=== PATIENT | female | born 1975 | race Caucasian/White ===

== ENCOUNTER 2019-02-18 18:30 | Emergency (ER) | payer MEDICAID ==
[~2019-02-18] VITALS: Ht 165.1 cm; Wt 77.1 kg
[2019-02-18 18:42] VITALS: BP_SYST 148
--- NOTE | 2019-02-18 18:46 | NUR ---
Patient triaged and placed in waiting room. VSS and patient appears in no acute distress at this time. Accompanied by family, awaiting available bed, and MD notified of need for MSE.
--- NOTE | 2019-02-18 20:11 | NUR ---
Patient to ER bed h1 for evaluation. Side rails up.
--- NOTE | 2019-02-18 20:15 | NUR ---
Pt AAOx4 c/o 5/10 chest pain x 2 weeks with nausea. Pt also c/o numbness/tingling down L arm. Denies vomiting/diarrhea. Skin pink dry and warm, breathing even and unlabored. No other injuries/complaints per pt/noted. Will continue to monitor.
--- NOTE | 2019-02-18 20:18 | NUR ---
ER Dr. Xavier at bedside examining patient.
--- NOTE | 2019-02-18 20:49 | NUR ---
Pt ambulated to bathroom with steady gait to provide urine sample.
--- NOTE | 2019-02-18 21:00 | NUR ---
Pt taken to radiology in stable condition
[2019-02-18 21:07] LABS: BILIRUBIN,URINE NEGATIVE (NEGATIVE); BLOOD, URINE 3+ (NEGATIVE); COLOR,URINE YELLOW (YELLOW); GLUCOSE,URINE NEGATIVE (NEGATIVE); KETONES,URINE NEGATIVE (NEGATIVE); LEUKOCYTE ESTERASE ,URINE NEGATIVE (NEGATIVE); NITRITE, URINE NEGATIVE (NEGATIVE); PH,URINE 7.5 (5.0-8.0); PROTEIN URINE NEGATIVE (NEGATIVE); UROBILINOGEN,URINE 0.2 (0.2-1.0)
--- NOTE | 2019-02-18 21:13 | NUR ---
Zhao carmona in ED - 02/18/19 at 2114 by [email or web address] Pt returned from radiology in stable condition
[2019-02-18 21:15] LABS: CLARITY/URINE HAZY (CLEAR)
[2019-02-18 21:17] LABS: BACTERIA,URINE FEW /HPF (None Seen); MUCUS,URINE None Seen /LPF (None Seen); RBC,URINE 20-50 /HPF (0-3); WBC,URINE 0-3 /HPF (0-3)
--- NOTE | 2019-02-18 21:32 | NUR ---
Pt moved to bed 08
[2019-02-18 21:36] LABS: BASOPHILS % (AUTO) 0.5 % (0.0-2.0); EOSINOPHILS # (AUTO) 0.1 K/uL (0.0-0.4); EOSINOPHILS % (AUTO) 1.5 % (0.0-4.0); HEMATOCRIT 41.3 % (36-48); HEMOGLOBIN 13.9 g/dL (12.0-16.0); LYMPHOCYTES # (AUTO) 2.7 K/uL (1.0-5.5); LYMPHOCYTES % (AUTO) 33.1 % (20.5-51.5); MEAN CORPUSCULAR HEMOGLOBIN 31 pg (27-31); MEAN CORPUSCULAR HGB CONC 34 % (32-36); MEAN CORPUSCULAR VOLUME 92 fL (79.0-98.0); MONOCYTES # (AUTO) 0.4 K/uL (0.0-1.0); MONOCYTES % (AUTO) 5.4 % (1.7-9.3); NEUTROPHILS # (AUTO) 4.8 K/uL (1.8-7.7); NEUTROPHILS % (AUTO) 59.5 % (40.0-70.0); PLATELET COUNT (AUTO) 266 K/uL (130-430); RED CELL DISTRIBUTION WIDTH 13.3 % (9.0-15.0); WHITE BLOOD COUNT (AUTO) 8.1 K/uL (4.8-10.8)
[2019-02-18 21:42] LABS: ANION GAP 6 (5-15); CALCIUM 8.6 mg/dL (8.4-11.0); CHLORIDE 102 mmol/L (98-107); CREATININE 0.67 mg/dL (0.55-1.30); GLUCOSE 105 mg/dL (70-99); POTASSIUM 3.5 mmol/L (3.5-5.1); SODIUM SERUM 137 mmol/L (136-145); UREA NITROGEN, BLOOD 10 mg/dL (8-21)
[2019-02-18 21:46] LABS: GFR AFRICAN AMERICAN 125 mL/min (>90)
[2019-02-18 21:50] LABS: ALANINE AMINOTRANSFERASE 58 U/L (12-78); ALBUMIN 3.6 g/dL (3.4-4.8); ASPARTATE AMINOTRANSFERASE 35 U/L (10-37); TOTAL BILIRUBIN 0.2 mg/dL (0.0-1.0)
--- NOTE | 2019-02-18 22:20 | NUR ---
ER Dr. Xavier at bedside examining patient.
--- NOTE | 2019-02-18 22:52 | NUR ---
Patient given written and verbal discharge instructions and verbalizes understanding. ER MD Xavier discussed with patient the results and treatment provided. Patient in stable condition. ID arm band removed. Rx of Ibuprofen given. Patient educated on pain management and to follow up with PMD. Pain Scale 0. Opportunity for questions provided and answered. Medication side effect fact sheet provided.
[2019-02-18 22:53] VITALS: BP_SYST 150
[2019-02-18] MEDS ORDERED: IBUPROFEN 600 MG TABLET PO ONE (23:00)
== END 2019-02-18 22:53 | disposition home or self-care (01) ==
LOC: SED 18:30
DX: R07.89 Other chest pain (principal); I10 Essential (primary) hypertension; M79.605 Pain in left leg; J45.909 Unspecified asthma, uncomplicated; M79.602 Pain in left arm
CPT/HCPCS: 36415; 71045; 80053; 81000-TC; 81025; 82550-TC; 83880; 84484; 85025; 93005; 99284

== ENCOUNTER 2020-12-29 08:49 | Emergency (ER) | payer MEDICAID ==
[~2020-12-29] VITALS: Ht 165.1 cm; Wt 77.1 kg
[2020-12-29 09:09] VITALS: BP_SYST 129
--- NOTE | 2020-12-29 11:32 | NUR ---
Pt came into ER with C/O vaginal bleeding [id number] with lower back pain cramping intermittent 5/10. Pt reports going through approximatley 3-4 pads a day. Pt report nausea. Pt denies pain or buring with urination. Pt is nonfebrile 98.1. Pt reports fatigue. Pt is AAOX4 speaking full sentences vital signs holding with slight elevated BP 149/95 HR 79 RR 18 O2 saturation 98% RA. Pt resting in gurney attached to monitor. No distress noted at this time.
--- NOTE | 2020-12-29 11:32 | NUR ---
Placed in room 7 . Placed on safety and health consultant, blood pressure machine and pulse oximeter. To gown for exam. Side rails up.
--- NOTE | 2020-12-29 11:33 | NUR ---
Urine collected and sent to lab.
--- NOTE | 2020-12-29 11:35 | NUR ---
# 20 gauge angiocath placed to RAC. Use of asceptic technique. Opsite placed over site. Blood return noted. Blood for lab drawn from site. Flushed with 10 cc of normal saline. No evidence of infiltration noted. Patient tolerated well.
--- NOTE | 2020-12-29 11:40 | NUR ---
Blood collected and sent to lab.
--- NOTE | 2020-12-29 12:01 | NUR ---
ER at bedside examining patient.
--- NOTE | 2020-12-29 12:13 | NUR ---
Set up for pelvic exam. Pt verbal consent given.
[2020-12-29] MEDS ORDERED: NACL 0.9% 1,000 ML IV ONE (12:15)
--- NOTE | 2020-12-29 12:22 | NUR ---
Dr. Xavier at bedside performing pelvic exam. Accompanied by Alka PLASENCIA. Consent form signed.
[2020-12-29 12:26] LABS: CALCIUM 7.9 mg/dL (8.4-11.0); CREATININE 0.59 mg/dL (0.55-1.30); POTASSIUM 4.1 mmol/L (3.5-5.1)
[2020-12-29 12:39] LABS: BASOPHILS # (AUTO) 0.1 K/uL (0.0-0.2); BASOPHILS % (AUTO) 0.8 % (0.0-2.0); EOSINOPHILS # (AUTO) 0.2 K/uL (0.0-0.4); EOSINOPHILS % (AUTO) 2.5 % (0.0-4.0); HEMATOCRIT 40.7 % (36-48); HEMOGLOBIN 13.5 g/dL (12.0-16.0); LYMPHOCYTES # (AUTO) 2.7 K/uL (1.0-5.5); LYMPHOCYTES % (AUTO) 33.1 % (20.5-51.5); MEAN CORPUSCULAR HEMOGLOBIN 31 pg (27-31); MEAN CORPUSCULAR HGB CONC 33 % (32-36); MEAN CORPUSCULAR VOLUME 94 fL (79.0-98.0); MONOCYTES # (AUTO) 0.4 K/uL (0.0-1.0); MONOCYTES % (AUTO) 5.5 % (1.7-9.3); NEUTROPHILS # (AUTO) 4.7 K/uL (1.8-7.7); NEUTROPHILS % (AUTO) 58.1 % (40.0-70.0); PLATELET COUNT (AUTO) 227 K/uL (130-430); RED BLOOD CELL COUNT(AUTO) 4.32 MIL/uL (4.2-6.2); RED CELL DISTRIBUTION WIDTH 13.3 % (9.0-15.0); WHITE BLOOD COUNT (AUTO) 8.1 K/uL (4.8-10.8)
[2020-12-29 12:58] LABS: BILIRUBIN,URINE NEGATIVE (NEGATIVE); BLOOD, URINE 3+ (NEGATIVE); GLUCOSE,URINE NEGATIVE (NEGATIVE); KETONES,URINE NEGATIVE (NEGATIVE); LEUKOCYTE ESTERASE ,URINE NEGATIVE (NEGATIVE); NITRITE, URINE NEGATIVE (NEGATIVE); PROTEIN URINE TRACE (NEGATIVE); UROBILINOGEN,URINE 0.2 (0.2-1.0)
--- NOTE | 2020-12-29 12:58 | NUR ---
Patient transported to radiology via wheelchair, accompanied by tech.
[2020-12-29 12:59] LABS: CLARITY/URINE SLIGHTLY HAZY (CLEAR); COLOR,URINE YELLOW (YELLOW)
[2020-12-29 13:06] LABS: BACTERIA,URINE MODERATE /HPF (None Seen); RBC,URINE >100 /HPF (0-3)
--- NOTE | 2020-12-29 13:17 | NUR ---
Back from ultrasound.
--- NOTE | 2020-12-29 14:34 | NUR ---
Dr. Xavier at bedside speaking with pt.
[2020-12-29] MEDS ORDERED: MEDR10TA3 PO (14:58)
--- NOTE | 2020-12-29 15:04 | NUR ---
Patient given written and verbal discharge instructions and verbalizes understanding. ER MD discussed with patient the results and treatment provided. Patient in stable condition. ID arm band removed. IV catheter removed intact and dressing applied, no active bleeding. Rx of provera given. Patient educated on pain management and to follow up with PMD. Pain Scale 0/10. Opportunity for questions provided and answered. Medication side effect fact sheet provided.
[2020-12-29 15:05] VITALS: BP_SYST 132
== END 2020-12-29 15:04 | disposition home or self-care (01) ==
LOC: SED 08:49
DX: N93.8 Other specified abnormal uterine and vaginal bleeding (principal); N92.0 Excessive and frequent menstruation with regular cycle; J45.909 Unspecified asthma, uncomplicated
CPT/HCPCS: 36415; 76830; 76857; 80048; 81000; 81025; 85025; 87086; 96360; 99284; J7030